=== PATIENT | male | born 1945 | race Caucasian/White ===

== ENCOUNTER → 2017-12-20 | Outpatient (CLI) | payer OTHER | LOC: BMCIMAGING 14:45 | PROVIDERS: ATTEND Physician Assistant Medical | DX: M48.54XA Collapsed vertebra, not elsewhere classified, thoracic region, initial encounter for fracture (principal); M41.85 Other forms of scoliosis, thoracolumbar region; I70.0 Atherosclerosis of aorta | CPT/HCPCS: G0103 ==

== ENCOUNTER → 2018-01-27 | Outpatient (CLI) | payer OTHER | LOC: BMCIMAGING 10:37 | PROVIDERS: ATTEND Neurological Surgery | DX: S22.080D Wedge compression fracture of T11-T12 vertebra, subsequent encounter for fracture with routine healing (principal) ==

== ENCOUNTER → 2018-02-21 | Outpatient (CLI) | payer OTHER | LOC: BMCIMAGING 11:47 | PROVIDERS: ATTEND Physician Assistant Surgical | DX: Z09 Encounter for follow-up examination after completed treatment for conditions other than malignant neoplasm (principal); Z98.890 Other specified postprocedural states; M40.204 Unspecified kyphosis, thoracic region; M48.54XA Collapsed vertebra, not elsewhere classified, thoracic region, initial encounter for fracture; M48.56XA Collapsed vertebra, not elsewhere classified, lumbar region, initial encounter for fracture; M85.80 Other specified disorders of bone density and structure, unspecified site; I70.0 Atherosclerosis of aorta ==

== ENCOUNTER → 2018-03-02 | Outpatient (CLI) | payer OTHER | LOC: BMCIMAGING 11:35 | PROVIDERS: ATTEND Physician Assistant Surgical | DX: S22.080D Wedge compression fracture of T11-T12 vertebra, subsequent encounter for fracture with routine healing (principal) ==